=== PATIENT | female | born 1960 | race Caucasian/White ===

== ENCOUNTER 2017-08-10 12:22 | Emergency (ER) | payer MEDICARE, MEDICAID ==
[~2017-08-10] VITALS: Ht 154.9 cm; Wt 46.7 kg
--- OUTSIDE RECORDS SUMMARY | ~2017-08-10 | XMS | Clinical Summary ---
Demographics + + + | Address | [address] | | | [place] [address] | + + + | Home Phone | | + + + | Preferred Language | Unknown | + + + | Marital Status | | + + + | Confucianist Affiliation | Unknown | + + + | Race | White | + + + | Ethnic Group | Not or | + + + Author + + + | Author | [facility] | + + + | Organization | [facility] | + + + | Address | Unknown | + + + | Phone | Unavailable | + + + Support +------+ + + + + | Name | Relationship | Address | Phone | +------+ + + + + ECON | [address] | | [place] [address] | +------+ + + + + Care Team Providers + +------+ + | Care Process Laboratory Specialist Name | Role | Phone | + +------+ + PP | Unavailable | + +------+ + Source Comments [facility] is [facility] live [facility] Allergies + + + + + + | Active Allergy | Reactions | Severity | Noted | Comments | | | | | Date | | + + + + + + | Lorazepam | Psychosis | High | 10/26/19 | | | | | | 06 | | + + + + + + | Prochlorperazine | Tachycardia | High | 10/26/19 | | | Edisylate | | | 06 | | + + + + + + | Gabapentin | Psychosis | High | 10/26/19 | | | | | | 06 | | + + + + + + | Butorphanol Tartrate | Tachycardia | High | 10/26/19 | | | | | | 06 | | + + + + + + Current Medications + +--------+-------+---------+------+------+-------+ | Prescription | Sig. | Disp. | Refills | Star | End | Statu | | | | | | t | Date | s | | | | | | Date | | | + +--------+-------+---------+------+------+-------+ | MORPHINE 30 MG TAB | 3x qd | | | | | Activ | | | | | | | | e | + +--------+-------+---------+------+------+-------+ | ESTRACE OR | qd | | | | | Activ | | | | | | | | e | + +--------+-------+---------+------+------+-------+ | TRAZODONE 150 MG | q pm | | | | | Activ | | TAB | | | | | | e | + +--------+-------+---------+------+------+-------+ | ANZEMET OR | 2x qd | | | | | Activ | | | | | | | | e | + +--------+-------+---------+------+------+-------+ | CELEXA 40 MG TAB | qd | | | | | Activ | | | | | | | | e | + +--------+-------+---------+------+------+-------+ | WELLBUTRIN SR 150 | qd | | | | | Activ | | MG TAB | | | | | | e | + +--------+-------+---------+------+------+-------+ | VICODIN OR | prn | | | | | Activ | | | | | | | | e | + +--------+-------+---------+------+------+-------+ | PERCOCET OR | prn | | | | | Activ | | | | | | | | e | + +--------+-------+---------+------+------+-------+ | PRILOSEC OR | qd | | | | | Activ | | | | | | | | e | + +--------+-------+---------+------+------+-------+ | CALCIUM 500 MG TAB | 3x qd | | | | | Activ | | | | | | | | e | + +--------+-------+---------+------+------+-------+ Active Problems Not on file Social History + +-------+ +--------+------+ | Tobacco Use | Types | Packs/Day | Years | Date | | | | | Used | | + +-------+ +--------+------+ | Never Assessed | | | | | + +-------+ +--------+------+ + + + | Sex Assigned at | Date Recorded | | | | + + + | Not on file | | + + + Plan of Treatment + + + + + | Health Maintenance | Due Date | Last Done | Comments | + + + + + | INFLUENZA VACCINE | | | | | (FLU SHOT) | 7 | | | + + + + + Results Not on filefrom Last 3 Months"
--- OUTSIDE RECORDS SUMMARY | ~2017-08-10 | XMS | Clinical Summary ---
Demographics + + + | Address | [address] | | | [place] [address] | + + + | Home Phone | | + + + | Preferred Language | Unknown | + + + | Marital Status | | + + + | Presybeterian Affiliation | Unknown | + + + | Race | White | + + + | Ethnic Group | Not or | + + + Author + + + | Author | [facility] | + + + | Organization | [facility] | + + + | Address | Unknown | + + + | Phone | Unavailable | + + + Support +------+ + + + + | Name | Relationship | Address | Phone | +------+ + + + + ECON | [address] | | [place] [address] | +------+ + + + + Care Team Providers + +------+ + | Care Education Administrative Assistant Name | Role | Phone | + +------+ + PP | Unavailable | + +------+ + Source Comments [facility] is fully live on [facility] Allergies + + + + + + [...]
[~2017-08-10 12:22] MED LIST: ACETAMINOPHEN325 M1 PO; AMITRIPTYLINE H10 MG PO; AMLODIPINE BES2.5 MG PO; BUTALB-ACETAMI1 EACH PO; CEPHALEXIN500 MG PO; CHOLESTYRAMINE378 GM PO; COMPAZINE25 MG RC; DIPHENHYDRAMINE50 MG PO; ESTRADIOL1 MG PO; FOLIC ACID1 MG PO; HYDROCODON-ACE1 EA11 PO; INDERAL LA80 MG PO; K-SOL20 MEQ/15 PO; KLOR-CON M2020 MEQ PO; KLOR-CON SPRIN10 MEQ PO; LEVAQUIN750 MG PO; LIPITOR10 MG PO; LISINOPRIL-HCT1 EAC1 PO; LISINOPRIL20 MG PO; MAGNESIUM OXID400 MG PO; MEDROL DOSE PACK; NICORETTE2 MG MM; NICOTINE PATCH1 EACH TD; NORCO 5-325 TA1 EACH PO; NORCO 7.5-3251 EACH PO; ONDANSETRON HCL4 MG PO; OXYCODONE HCL5 MG PO; PANTOPRAZOLE SO40 MG PO; PHENERGAN25 MG RC; PHENERGAN50 MG RC; POTASSIUM CHLO10 ME1 PO; POTASSIUM CHLO20 ME2 PO; PRILOSEC20 MG PO; PROMETHAZI6.25 MG/5 PO; PROMETHAZINE HC25 M1 PO; PROMETHAZINE HC25 MG PR; PROMETHEGAN50 MG RC; PROPRANOLOL HCL20 MG PO; PROPRANOLOL HCL80 M1 PO; PROTONIX20 MG PO; PROTONIX40 MG; QUESTRAN PACKET4 GM PO; REMERON15 MG PO; ROBAXIN-750750 MG PO; SEPTRA DS TABL1 EACH PO; SERTRALINE HCL50 MG PO; TRAZODONE HCL100 MG PO; TRAZODONE HCL150 MG PO; VICODIN ES 7.51 EAC1 PO; VITAMIN B-1100 M1 PO; WELLBUTRIN XL300 MG PO; ZOFRAN ODT4 MG SL; ZOFRAN ODT8 MG PO; ZOFRAN ODT8 MG SL; ZOFRAN4 MG PO
[2017-08-10] MEDS ORDERED: NAPROSYN500 MG PO (13:38)
[2017-08-10] MEDS ORDERED: PREDNISONE20 MG PO (13:38)
[2017-08-10] MEDS ORDERED: CYCLOBENZAPRINE10 MG PO (13:38)
== END 2017-08-10 13:48 | disposition home or self-care (01) ==
LOC: ED 12:22
DX: M54.5 Low back pain (principal); G89.29 Other chronic pain; F17.200 Nicotine dependence, unspecified, uncomplicated; Z88.8 Allergy status to other drugs, medicaments and biological substances
CPT/HCPCS: 72100; 96372; 99283; J1885